=== PATIENT | male | born 2000 | race Caucasian/White ===

== ENCOUNTER 2024-03-17 03:35 | Emergency (ER) | payer SELFPAY ==
[~2024-03-17] VITALS: Ht 172.7 cm; Wt 95.0 kg
[2024-03-17 03:55] VITALS: O2SAT 100
[2024-03-17] MEDS ORDERED: DIPH25CA83 PO (05:13)
[2024-03-17] MEDS ORDERED: LIDO170S TP (05:13)
[2024-03-17 05:34] VITALS: BP 125/85; PULSE 85; RESP 18; TEMP 98.1
== END 2024-03-17 05:36 | disposition home or self-care (01) ==
LOC: ER 03:57
DX: L55.0 Sunburn of first degree (principal); L29.9 Pruritus, unspecified
CPT/HCPCS: 16000; 99282

== ENCOUNTER 2025-02-15 01:16 | Emergency (ER) | payer MEDICAID, OTHER ==
[~2025-02-15] VITALS: Ht 175.3 cm; Wt 102.0 kg
[~2025-02-15 01:16] MED LIST: DIPH25CA83 PO; LIDO170S TP
[2025-02-15 01:23] VITALS: O2SAT 100
[2025-02-15] MEDS: HYDROCODONE/ACETAMINOPHEN 5/325MG TABLET PO ONE (02:20)
[2025-02-15] MEDS: BACITRACIN 14GM TUBE TOP ONE (03:09)
[2025-02-15] MEDS: TETANUS, DIPHTHERIA, PERTUSSIS VAC/PF 0.5ML (>10YR OLD) IM ONE (03:10)
[2025-02-15] MEDS: AMOXICILLIN/POTASSIUM CLAVULANATE 875/125MG TAB PO ONE (03:10)
[2025-02-15] MEDS: BACITRACIN ZINC OINT UDPKT TOP NR (03:31)
[2025-02-15] MEDS ORDERED: IBUP-2029 MT (04:12)
[2025-02-15] MEDS ORDERED: AMOX-405 MT (04:12)
[2025-02-15 04:22] VITALS: BP 129/86; PULSE 96; RESP 19; TEMP 36.7; O2SAT 97
== END 2025-02-15 04:35 | disposition home or self-care (01) ==
LOC: ER 01:16
DX: S91.135A Puncture wound without foreign body of left lesser toe(s) without damage to nail, initial encounter (principal); W34.00XA Accidental discharge from unspecified firearms or gun, initial encounter; Y93.01 Activity, walking, marching and hiking; Y93.89 Activity, other specified; Y92.89 Other specified places as the place of occurrence of the external cause; Y99.8 Other external cause status
CPT/HCPCS: 73630; 90715; 29515; 90471; 99285; Z7610

== ENCOUNTER 2025-06-24 14:35 | Emergency (ER) | payer MEDICAID, OTHER ==
[~2025-06-24] VITALS: Ht 175.3 cm; Wt 127.0 kg
[~2025-06-24 14:35] MED LIST changes: -DIPH25CA83 PO; +HYDR-4009 MT; +IBUP-1455 MT; -LIDO170S TP
[2025-06-24 15:18] VITALS: O2SAT 98
[2025-06-24] MEDS: KETOROLAC 30MG/ML VIAL IM ONE (16:57)
[2025-06-24] MEDS ORDERED: IBUP-1455 MT (17:19)
[2025-06-24 17:26] VITALS: BP 148/90; PULSE 88; RESP 14; TEMP 37.1; O2SAT 98
== END 2025-06-24 17:27 | disposition home or self-care (01) ==
LOC: ER 14:35
DX: M25.572 Pain in left ankle and joints of left foot (principal); M25.552 Pain in left hip; Z90.49 Acquired absence of other specified parts of digestive tract
CPT/HCPCS: 99284; 73502; 73610; 96372; J1885